=== PATIENT | male | born 1980 | race Caucasian/White ===

== ENCOUNTER 2024-04-08 20:56 | Emergency (ER) | payer BC ==
--- OUTSIDE RECORDS SUMMARY | 2024-04-08 20:58 | XMS REPORT | Clinical Summary ---
Author Name Unknown Organization [facility] Address [address] [place] [address] Care Team Providers Care Crossband Layer Name Role Phone Yannick Amos MD Primary Care Provider [phone] Social History Tobacco Use Types Packs/Day Years Used Date Smoking Tobacco: Never Assessed Sex and Gender Information Value Date Recorded Sex Assigned at Male 07/18/2019 12:04 PM [employer] Gender Identity Male 07/18/2019 12:04 PM [employer] Sexual Orientation Straight 07/18/2019 12 :04 PM [employer] Job Start Date Occupation Industry Not on file Not on file Not on file Plan of Treatment Health Maintenance Due Date Last Done Comments COVID-19 Vaccine (2023-2 5 season) 2024 Influenza Vaccine (#1) 2024 Pneumococcal Vaccine: Pediat rics (0 to 5 Years) and At-Risk Patients (6 to 64 Years) Aged Out No longer eligi ble based on patient's age to complete this topic Care Teams Crossband Layer Relationship Specialty Start Date End Date Yannick Amos MD [address] [place] [address] [phone] [email or web address] PCP - General Gastroenterology, Hepatology and Nutrition 07/20/19
[2024-04-08 22:58] LABS: Absolute Basophils 0.1 K/uL (0-0.5); Absolute Eosinophils 0.2 K/uL (0-0.5); Absolute Lymphocytes (CBC) 2.6 K/uL (0.7-4.9); Absolute Monocytes 1.1 K/uL (0.1-1.3); Absolute Neutrophil 6.4 K/uL (1.8-8.0); Basophils % 0.7 % (0-1.3); Eosinophils % 2.2 % (0-4.4); Hematocrit 41.8 % (39.6-49.0); Hemoglobin 14.4 g/dL (13.6-17.9); MCH 31.2 pg (27.0-35.0); MCHC 34.6 g/dL (32.0-36.0); MCV 90.2 fL (80-100); MPV 9.5 fL (7.6-11.3); Monocytes % 10.3 % (3.3-12.3); Neutrophils % 61.8 % (41.7-73.7); Platelets 189 thou/uL (152-406); RBC Red Blood Cell Count 4.63 M/uL (4.33-5.43); Red Cell Distribution Width 12.9 % (12.1-15.2)
[2024-04-08] MEDS ORDERED: dexAMETHasone 10 MG/ML VIAL ONE (23:01)
[2024-04-08] MEDS ORDERED: NA CHLORIDE 0.9% 1,000 ML ONE (23:01)
[2024-04-08] MEDS ORDERED: KETOROLAC 30 MG/ML INJ ONE (23:01)
[2024-04-08 23:05] LABS: Sqamous Epithelial <5 /HPF (None Seen); Urine Bacteria None Seen /HPF (<20); Urine Bilirubin NEGATIVE (Negative); Urine Blood Negative (Negative); Urine Clarity Clear (Clear); Urine Color Light-Yellow (Yellow); Urine Crystals Unidentified Few /HPF (None Seen); Urine Culture Reflex Order NOT NEEDED; Urine Glucose 4+ (Over) (Negative); Urine Ketones NEGATIVE (Negative); Urine Microscopic Reflex YN ORDER UMIC; Urine Nitrite NEGATIVE (Negative); Urine Protein NEGATIVE (Negative); Urine RBC <5 /HPF (None Seen); Urine Urobilinogen Normal (Normal); Urine WBC <5 /HPF (<5)
[2024-04-08 23:10] LABS: SARS-CoV-2 Antigen CONTROL BLUE LINE VIS/BG OK; SARS-CoV-2 Antigen Rapid Res Negative (Negative)
[2024-04-08 23:13] LABS: Albumin 3.7 g/dL (3.4-5.0); Albumin/Globulin Ratio 0.8 (1.1-1.8); Anion Gap 8.6 mEq/L (5.0-15.0); Bilirubin Total 0.4 mg/dL (0.2-1.0); Globulin 4.6 g/dL (2.3-3.5); Potassium 3.6 mEq/L (3.5-5.1); Protein, Total 8.3 g/dL (6.4-8.2)
--- NOTE | 2024-04-08 23:37 | RAD REPORT ---
EXAM DESCRIPTION: Extremity Venous Uni Ltd RadLex: US EXTREMITY VEINS UNILATERAL CLINICAL HISTORY: PAIN. COMPARISON: None. TECHNIQUE: Survey ultrasound imaging of the deep venous system of the right lower extremity was per formed including jacobo scale, color, and spectral Doppler evaluation with service center representative images obtained. Segmental venous compression and calf vein augmentation were performed. FINDINGS: Common femoral vein: Patent without thrombus. Normal response to augmentation. Normal respiratory p hasicity is indirect evidence of central patency. Cephalad greater saphenous vein: Patent without thrombus. Normal respiratory phasicity is indirect ev idence of central patency. Cephalad profunda femoral vein: Patent without thrombus. Normal response to augmentation. Femoral vein: Patent without thrombus. Normal response to augmentation. Popliteal vein: Patent without thrombus. Normal response to augmentation. Calf veins: Patent without thrombus. IMPRESSION: Negative for right lower extremity deep venous thrombosis. Electronically signed by: Karyn Skinner MD 04/08/2024 11:30 PM CDT RP Due to temporary technical issues with the PACS/[employer] reporting system, reports are being sign ed by the in-house radiologist without review as a courtesy to ensure prompt reporting the interpreting rad iologist is fully responsible for the content of the report. Transcribed Date/Time: 04/08/2024 11:37 PM
--- NOTE | 2024-04-09 00:31 | EDPHYS ---
Physician Documentation [facility] Name: John Newberry Age: 43 yrs Sex: Male : 1980 Arrival Date: 04/08/2024 Time: 20:56 Bed 7 Private MD: ED Physician cM Joseph HPI: 04/08 22:05 This 43 yrs old Male presents to ER via Ambulatory with complaints of Leg Pain, Hip cp Swelling. 22:05 The patient presents with pain, that is acute, swelling, tenderness. The complaints cp affect the right leg and right hip. 22:05 Context: the patient can fully bear weight, the patient is able to ambulate, with cp moderate difficulty. 22:05 Onset: The symptoms/episode began/occurred intermittent for years with swelling of hip. cp Historical: - Allergies: 21:13 No Known Allergies; tm6 - PMHx: 21:13 colon cancer; unknown autoimmune issue; tm6 - PSHx: 21:13 lower anterior colon resection; tm6 - Immunization history:: Client reports receiving the 2nd dose of the Covid vaccine. - Infectious Disease History:: Denies. - Social history:: Smoking status: Patient reports the use of cigarette tobacco products, smokes one pack cigarettes per day. Patient/guardian denies using alcohol. ROS: 22:10 Constitutional: Negative for fever, chills, and weight loss, cp 22:10 Cardiovascular: Negative for chest pain, 22:10 Respiratory: Negative for cough, 22:10 Abdomen/GI: Positive for abdominal pain, Negative for vomiting, diarrhea, constipation, anorexia, black/tarry stool, rectal bleeding, 22:10 Back: Positive for pain at rest, pain with movement, 22:10 MS/extremity: Positive for pain, tenderness, of the right leg and right hip, Negative for injury or acute deformity, decreased range of motion, 22:10 Skin: Negative for rash, 22:10 Neuro: Negative for altered mental status, dizziness, headache, weakness, 22:10 All other systems are negative, Exam: 22:15 Constitutional: The patient appears in no acute distress, alert, awake, non-toxic, well cp developed, well nourished, uncomfortable, 22:15 Head/Face: Normocephalic, atraumatic. cp 22:15 Eyes: Periorbital structures: appear normal, Conjunctiva: normal, no exudate, no injection, Sclera: no appreciated abnormality, Lids and lashes: appear normal, bilaterally, 22:15 ENT: External ear(s): are unremarkable, Nose: is normal, Mouth: Lips: moist, Oral mucosa: moist, Posterior pharynx: Airway: no evidence of obstruction, patent, 22:15 Chest/axilla: Inspection: normal, 22:15 Cardiovascular: Rate: normal, Rhythm: regular, Edema: is not appreciated, JVD: is not appreciated, 22:15 Respiratory: the patient does not display signs of respiratory distress, Respirations: normal, no use of accessory muscles, no retractions, labored breathing, is not present, Breath sounds: are clear throughout, no decreased breath sounds, no stridor, no wheezing, 22:15 Abdomen/GI: Inspection: scar(s), Bowel sounds: active, all quadrants, Palpation: soft, in all quadrants, nontender, in all quadrants, 22:15 Back: CVA tenderness, is absent, 22:15 Musculoskeletal/extremity: Extremities: noted in the right leg: tenderness and pain to right hip, ROM: limited passive range of motion due to pain, in the right hip, 22:15 Skin: cellulitis, is not appreciated, no rash present. 22:15 Neuro: Orientation: to person, place \T\ time. Mentation: is normal, Vital Signs: 21:11 BP 158 / 105; Pulse 96; Resp 19; Temp 99(O); Pulse Ox 97% on R/A; MAP 121 mmHg; Weight tm6 99.79 kg; Height 5 ft. 9 in. ; Pain 8/10; 21:15 BP 151 / 94; Pulse 87; Resp 16; Pulse Ox 98% ; al5 21:32 BP 147 / 91; Pulse 87; Resp 18; Pulse Ox 98% on R/A; al5 21:45 BP 142 / 83; Pulse 86; Resp 17; Pulse Ox 97% on R/A; al5 22:00 BP 132 / 91; Pulse 82; Resp 17; Pulse Ox 98% on R/A; al5 22:30 BP 121 / 79; Pulse 80; Resp 18; Pulse Ox 98% on R/A; al5 22:45 BP 118 / 88; Pulse 83; Resp 16; Pulse Ox 98% on R/A; al5 23:00 BP 128 / 83; Pulse 81; Resp 17; Pulse Ox 97% on R/A; al5 23:30 BP 128 / 81; Pulse 80; Resp 17; Pulse Ox 99% on R/A; al5 04/09 00:00 BP 132 / 77; Pulse 82; Resp 18; Pulse Ox 95% on R/A; al5 00:30 BP 126 / 85; Pulse 80; Resp 17; Pulse Ox 96% on R/A; al5 04/08 21:11 Body Mass Index 32.49 (99.79 kg, 175.26 cm) tm6 04/08 21:11 Pain Scale: Adult tm6 MDM: 04/08 21:07 Medical Screening Exam initiated cp 23:00 Differential diagnosis: tendonitis, bursitis, fracture, DVT, cellulitis. 04/09 00:30 Data reviewed: vital signs, nurses notes, lab test result(s), radiologic studies, CT cp scan, ultrasound, and as a result, I will discharge patient. 00:30 I considered the following discharge prescriptions or medication management in the emergency department Medications were administered in the Emergency Department. See MAR. Care significantly affected by the following chronic conditions: Cancer. Counseling: I had a detailed discussion with the patient and/or guardian regarding the historical points, exam findings, and any diagnostic results supporting the discharge/admit diagnosis, lab results, radiology results, to return to the emergency department if symptoms worsen or persist or if there are any questions or concerns that arise at home. 04/08 22:04 Order name: CBC with Diff; Complete Time: 23:59 04/09 00:00 Interpretation: Reviewed. 04/08 22:04 Order name: CMP; Complete Time: 23:59 04/08 23:59 Interpretation: Normal except: GLUC 251; AST 13; TP 8.3; GLOB 4.6; A/G 0.8. 04/08 22:04 Order name: Lipase; Complete Time: 23:59 04/08 22:04 Order name: Urinalysis w/ reflexes; Complete Time: 23:59 04/08 23:59 Interpretation: Normal except: UGLUC 4+ (Over). 04/08 22:05 Order name: SARS RAPID; Complete Time: 23:59 04/08 22:05 Order name: Influenza Screen (a \T\ B); Complete Time: 23:59 cp 04/08 22:06 Order name: US Extremity Venous Unilateral Ltd; Complete Time: 23:59 cp 04/09 00:00 Interpretation: Report reviewed. cp 04/08 22:06 Order name: CT Stone Protocol cp 04/08 22:04 Order name: IV Saline Lock; Complete Time: 22:51 cp 04/08 22:04 Order name: Labs collected and sent; Complete Time: 22:51 cp Administered Medications: 04/08 23:08 Drug: TORadol - Ketorolac IVP 15 mg IVP once Route: IVP; Site: right antecubital; al5 04/09 00:43 Follow up: Response: No adverse reaction; Pain is decreased al5 04/08 23:08 Drug: NS 0.9% IV 1000 ml IV at 1 bolus Per protocol; to be given as a bolus over 60 al5 minutes Route: IV; Rate: 1 bolus; Site: right antecubital; 04/09 00:43 Follow up: Response: No adverse reaction; IV Status: Completed infusion; IV Intake: al5 1000ml 04/08 23:09 Drug: Dexamethasone IVP 10 mg IVP once; (not to exceed 40 mg) Route: IVP; Site: right al5 antecubital; 04/09 00:43 Follow up: Response: No adverse reaction; Pain is decreased al5 Disposition: 01:00 Co-signature as Attending Physician, Mc Joseph MD I reviewed the patient's care rt provided by the Advanced Practice Provider and agree with the diagnosis and treatment plan. Disposition Summary: 04/09/24 00:30 Discharge Ordered Notes: Location: Home cp Problem: new cp Symptoms: have improved cp Condition: Stable cp Diagnosis - Pain in right hip cp - Pain in right leg cp Followup: cp - With: Private Physician - When: 2 - 3 days - Reason: Worsening of condition Discharge Instructions: - Discharge Summary Sheet cp - Musculoskeletal Pain cp - Hip Pain cp Forms: - Medication Reconciliation Form cp - Antibiotic Education cp - Prescription Opioid Use cp - Patient Portal Instructions cp - Leadership Thank You Letter cp Prescriptions: - Diclofenac Sodium 75 mg Oral Tablet Sustained Release - take 1 tablet ORAL route 2 times per day; 30 tablet; Refills: 0, Product cp Selection Permitted Signatures: Dispatcher [facility] Jelani Hummel PA PA cp [place]ton, Ryan, MD MD rt Ana Murdock RN RN tm6 Gladys Najera RN RN al5 Corrections: (The following items were deleted from the chart) :04/08 21:25 Constitutional: Negative for fever, chills, and weight loss, cp cp 04/09 20:04/08 21:25 Cardiovascular: Negative for chest pain, cp cp 04/09 20:04/08 21:25 Respiratory: Negative for cough, cp cp 04/09 20:04/08 21:25 Abdomen/GI: Positive for abdominal pain, Negative for vomiting, diarrhea, cp constipation, anorexia, black/tarry stool, rectal bleeding, cp 04/09 20:04/08 21:25 Back: Positive for pain at rest, pain with movement, cp cp 04/09 20:04/08 21:25 MS/extremity: Positive for pain, tenderness, of the right leg and right cp hip, Negative for injury or acute deformity, decreased range of motion, cp 04/09 20:04/08 21:25 Skin: Negative for rash, cp cp 04/09 20:04/08 21:25 Neuro: Negative for altered mental status, dizziness, headache, weakness, cpcp 04/09 20:04/08 21:25 All other systems are negative, cp cp
--- NOTE | 2024-04-09 00:31 | ER ---
Nurse's Notes [facility] Name: John Newberry Age: 43 yrs Sex: Male : 1980 Arrival Date: 04/08/2024 Time: 20:56 Bed 7 Private MD: Diagnosis: Pain in right hip;Pain in right leg Presentation: 04/08 21:11 Chief complaint: Patient states: I had cancer 10 years ago and around 2016 I started to tm6 get swelling around my hip and legs. It comes and goes. This time it started last weekend. It hurts on my right hip and right leg. I also feel like I have the flu. I took 600mg of ibuprofen around 8pm. Coronavirus screen: Vaccine status: Patient reports receiving the 2nd dose of the covid vaccine. Client denies travel out of the [place] in the last 14 days. Ebola Screen: Patient negative for fever greater than or equal to 101.5 degrees Fahrenheit, and additional compatible Ebola Virus Disease symptoms Patient denies exposure to infectious person. Patient denies travel to an Ebola-affected area in the 21 days before illness onset. No symptoms or risks identified at this time. Initial Sepsis Screen: Does the patient meet any 2 criteria? No. Patient's initial sepsis screen is negative. Does the patient have a suspected source of infection? No. Patient's initial sepsis screen is negative. Risk Assessment: Do you want to hurt yourself or someone else? Patient reports no desire to harm self or others. Onset of symptoms was April 02, 2024. 21:11 Method Of Arrival: Ambulatory tm6 21:11 Acuity: CHRISTI 3 tm6 Triage Assessment: 21:13 General: Appears in no apparent distress. uncomfortable, Behavior is calm, cooperative. tm6 Pain: Complains of pain in right hip and right leg Pain currently is 8 out of 10 on a pain scale. Pain began one week ago. EENT: No signs and/or symptoms were reported regarding the EENT system. Neuro: Level of Consciousness is awake, alert, obeys commands, Oriented to person, place, time, situation. Cardiovascular: Patient's skin is warm and dry. Respiratory: Airway is patent Respiratory effort is even, unlabored, Respiratory pattern is regular, symmetrical. GI: No signs and/or symptoms were reported involving the gastrointestinal system. Abdomen is flat, non-distended. : No signs and/or symptoms were reported regarding the genitourinary system. Derm: No signs and/or symptoms reported regarding the dermatologic system. Musculoskeletal: Reports pain in right hip and right leg since last weekend. Pain is 8 out of 10 on a pain scale. Historical: - Allergies: 21:13 No Known Allergies; tm6 - PMHx: 21:13 colon cancer; unknown autoimmune issue; tm6 - PSHx: 21:13 lower anterior colon resection; tm6 - Immunization history:: Client reports receiving the 2nd dose of the Covid vaccine. - Infectious Disease History:: Denies. - Social history:: Smoking status: Patient reports the use of cigarette tobacco products, smokes one pack cigarettes per day. Patient/guardian denies using alcohol. Screenin:48 [facility] ED Fall Risk Assessment (Adult) History of falling in the last 3 months, al5 including since admission No falls in past 3 months (0 pts) Confusion or Disorientation No (0 pts) Intoxicated or Sedated No (0 pts) Impaired Gait Yes (1 pt) Mobility Assist Device Used No (0 pt) Altered Elimination No (0 pt) Score/Fall Risk Level 0 - 2 = Low Risk Oriented to surroundings, Maintained a safe environment, Hourly rounding (assess needs \T\ fall precautionary measures) done. Abuse screen: Denies threats or abuse. Denies injuries from another. Nutritional screening: No deficits noted. Tuberculosis screening: No symptoms or risk factors identified. Assessment: 22:00 General: Appears in no apparent distress. uncomfortable, Behavior is calm, cooperative. al5 Pain: Complains of pain in right leg and pelvis and right hip Pain currently is 7 out of 10 on a pain scale. Neuro: Level of Consciousness is awake, alert, obeys commands, Oriented to person, place, time, situation. Cardiovascular: Capillary refill < 3 seconds Patient's skin is warm and dry. Respiratory: Airway is patent Respiratory effort is even, unlabored, Respiratory pattern is regular, symmetrical. GI: No signs and/or symptoms were reported involving the gastrointestinal system. : Reports had L sided flank pain yesterday. EENT: No signs and/or symptoms were reported regarding the EENT system. Derm: Skin is intact, is healthy with good turgor, Skin is pink, warm \T\ dry. normal. Musculoskeletal: Reports pain in right leg and pelvis and right hip Pain is 7 out of 10 on a pain scale. 23:00 Reassessment: Patient appears in no apparent distress at this time. No changes from al5 previously documented assessment. Patient and/or family updated on plan of care and expected duration. Pain level reassessed. Patient is alert, oriented x 3, equal unlabored respirations, skin warm/dry/pink. 04/09 00:00 Reassessment: Patient appears in no apparent distress at this time. Patient and/or al5 family updated on plan of care and expected duration. Pain level reassessed. Patient is alert, oriented x 3, equal unlabored respirations, skin warm/dry/pink. Patient states feeling better. Patient states symptoms have improved. Vital Signs: 04/08 21:11 BP 158 / 105; Pulse 96; Resp 19; Temp 99(O); Pulse Ox 97% on R/A; MAP 121 mmHg; Weight tm6 99.79 kg; Height 5 ft. 9 in. ; Pain 8/10; 21:15 BP 151 / 94; Pulse 87; Resp 16; Pulse Ox 98% ; al5 21:32 BP 147 / 91; Pulse 87; Resp 18; Pulse Ox 98% on R/A; al5 21:45 BP 142 / 83; Pulse 86; Resp 17; Pulse Ox 97% on R/A; al5 22:00 BP 132 / 91; Pulse 82; Resp 17; Pulse Ox 98% on R/A; al5 22:30 BP 121 / 79; Pulse 80; Resp 18; Pulse Ox 98% on R/A; al5 22:45 BP 118 / 88; Pulse 83; Resp 16; Pulse Ox 98% on R/A; al5 23:00 BP 128 / 83; Pulse 81; Resp 17; Pulse Ox 97% on R/A; al5 23:30 BP 128 / 81; Pulse 80; Resp 17; Pulse Ox 99% on R/A; al5 04/09 00:00 BP 132 / 77; Pulse 82; Resp 18; Pulse Ox 95% on R/A; al5 00:30 BP 126 / 85; Pulse 80; Resp 17; Pulse Ox 96% on R/A; al5 04/08 21:11 Body Mass Index 32.49 (99.79 kg, 175.26 cm) tm6 04/08 21:11 Pain Scale: Adult tm6 ED Course: 04/08 20:58 Patient arrived in ED. mr 21:07 Jelani Hummel PA is PHCP. cp 21:07 Mc Joseph MD is Attending Physician. cp 21:13 Triage completed. tm6 21:13 Arm band placed on right wrist. tm6 21:38 Gladys Najera, LEONELA is Primary Nurse. al5 21:48 Patient has correct armband on for positive identification. Bed in low position. Call al5 light in reach. Side rails up X 1. Provided Education on: plan of care. 21:48 No provider procedures requiring assistance completed. al5 22:41 Inserted saline lock: 20 gauge in right antecubital area, using aseptic technique. sa1 Blood collected. Flushed with 10 mL NS. 22:51 CBC with Diff Sent. sa1 22:51 CMP Sent. sa1 22:51 Lipase Sent. sa1 22:51 Urinalysis w/ reflexes Sent. sa1 22:52 Influenza Screen (a \T\ B) Sent. sa1 22:52 SARS RAPID Sent. sa1 23:09 US Extremity Venous Unilateral Ltd In Process Unspecified. EDMS 23:21 CT Stone Protocol In Process Unspecified. EDMS 04/09 00:43 IV discontinued, intact, bleeding controlled, No redness/swelling at site. Pressure al5 dressing applied. Administered Medications: 04/08 23:08 Drug: TORadol - Ketorolac IVP 15 mg IVP once Route: IVP; Site: right antecubital; al5 04/09 00:43 Follow up: Response: No adverse reaction; Pain is decreased al5 04/08 23:08 Drug: NS 0.9% IV 1000 ml IV at 1 bolus Per protocol; to be given as a bolus over 60 al5 minutes Route: IV; Rate: 1 bolus; Site: right antecubital; 04/09 00:43 Follow up: Response: No adverse reaction; IV Status: Completed infusion; IV Intake: al5 1000ml 04/08 23:09 Drug: Dexamethasone IVP 10 mg IVP once; (not to exceed 40 mg) Route: IVP; Site: right al5 antecubital; 04/09 00:43 Follow up: Response: No adverse reaction; Pain is decreased al5 Medication: 04/08 21:48 VIS not applicable for this client. al5 Intake: 04/09 00:43 IV: 1000ml; Total: 1000ml. al5 Outcome: 00:30 Discharge ordered by . cp 00:43 Discharged to home ambulatory, with significant other, al5 00:43 Condition: good 00:43 Discharge instructions given to patient, significant other, Instructed on discharge instructions, follow up and referral plans. medication usage, Demonstrated understanding of instructions, follow-up care, medications, Prescriptions given X 1, 00:44 Patient left the ED. al5 Signatures: Dispatcher [employer] EDMS Nargis Tarango, Reg Reg mr Jelani Hummel, PA Ana Lenz cp RN RN tm6 Gladys Najera RN RN al5 Sultan aamir Mcarthur
--- NOTE | 2024-04-09 00:52 | RAD REPORT ---
CT ABDOMEN PELVIS WITHOUT IV CONTRAST CLINICAL INDICATION: Right hip/flank pain COMPARISON: None TECHNIQUE: CT images of the abdomen and pelvis obtained without contrast. Multiplanar reformats were provided. Dose-optimization techniques such as automated exposure control, iterative reconstruction, and mA and/or kV adjustment for patient size was utilized for this examination. FINDINGS: LOWER CHEST: Unremarkable. LIVER: Diffuse fatty infiltration of the liver without focal lesion. BILIARY: Unremarkable. PANCREAS: Unremarkable. SPLEEN: Mildly enlarged, measuring up to 13.7 cm craniocaudally. ADRENALS: Unremarkable. KIDNEYS/URETERS: No nephrolithiasis or hydroureteronephrosis.. BOWEL/STOMACH: Bowel anastomosis in right lower quadrant. No significant focal bowel thickening or di latation. No bowel obstruction. APPENDIX: Normal. MESENTERY/PERITONEUM: Unremarkable. RETROPERITONEUM: No adenopathy. URINARY BLADDER: Unremarkable. REPRODUCTIVE: Unremarkable. VASCULAR: No aortic aneurysm. ABDOMINAL/PELVIC WALL: Deficiency of midline anterior abdominal wall with several small fat containin g ventral hernias. BONES: Small calcification near greater trochanter of right femur, suggesting calcific tendinitis of gluteal muscle. No acute fracture or malalignment. Early degenerative changes of lumbar spine. No compression deformity, nor osteolytic or sclerotic lesion. IMPRESSION: 1. No acute inflammatory process in the abdomen and pelvis. 2. Hepatic steatosis. 3. Mild splenomegaly. 4. Small fat containing ventral abdominal wall hernia. Electronically signed by: Jada Ascencio MD 04/08/2024 11:48 PM CDT Due to temporary technical issues with the PACS/[employer] reporting system, reports are being rob d by the in-house radiologist without review as a courtesy to ensure prompt reporting the interpreting radiologist is fully responsible for the content of the report. Transcribed Date/Time: 04/09/2024 12:52 AM
[2024-04-09 13:24] VITALS: TEMP 99
[2024-04-09 13:36] VITALS: BP 126/85; O2SAT 96
== END 2024-04-09 00:44 | disposition home or self-care (01) ==
LOC: ER 20:56
DX: M25.551 Pain in right hip (principal); M79.604 Pain in right leg; F17.210 Nicotine dependence, cigarettes, uncomplicated; Z11.52 Encounter for screening for COVID-19
CPT/HCPCS: 85025; 81001; 36415; 83690; 80053; 87804 ×2; 76377; 74176; 93971; 87811; J1100; J7030; 96361; 96374; 96375; 99284